=== PATIENT | male | born 1960 | race African-American/Black ===

== ENCOUNTER 2018-02-04 13:40 | Emergency (ER) | payer BC ==
--- NOTE | 2018-02-04 15:20 | EDM.PDOC ---
ED HPI GENERAL MEDICAL PROBLEM - General Chief Complaint: Back Pain or Injury Stated Complaint: UPPER BACK PAIN Time Seen by Provider: 02/04/18 13:53 Source of Information: Reports: Patient History Limitations: Reports: No Limitations - History of Present Illness INITIAL COMMENTS - FREE TEXT/NARRATIVE: HISTORY AND PHYSICAL: History of present illness: Patient is a 57-year-old male who presents to the emergency room today with complaints of right posterior shoulder and mid back discomfort. 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 Denies any injury, trauma or falls. The past several days he has had increased pain when reaching straight up turning or having to extend his arm out. He denies any numbness or tingling to his distal extremities. Denies any fever, chills, chest pain or shortness of breath. Denies any abdominal pain, nausea, vomiting or diarrhea/constipation. Review of systems: As per history of present illness and below otherwise all systems reviewed and negative. Past medical history: As per history of present illness and as reviewed below otherwise noncontributory. Surgical history: As per history of present illness and as reviewed below otherwise noncontributory. Social history: No reported history of drug or alcohol abuse. Family history: As per history of present illness and as reviewed below otherwise noncontributory. Physical exam: General: Well-developed and well-nourished 57-year-old -[place] male. Alert and oriented. Nontoxic appearing and in no acute distress. HEENT: Atraumatic, normocephalic, pupils equal and reactive bilaterally, negative for conjunctival pallor or scleral icterus, mucous membranes moist, throat clear, neck supple, nontender, trachea midline. No drooling or trismus noted. No meningeal signs Lungs: Clear to auscultation, breath sounds equal bilaterally, chest nontender. Heart: S1S2, regular rate and rhythm without overt murmur Abdomen: Soft, nondistended, nontender. Negative for masses or hepatosplenomegaly. Negative for costovertebral tenderness. Pelvis: Stable nontender. Genitourinary: Deferred. Rectal: Deferred. Skin: Intact, warm, dry. No lesions or rashes noted. Extremities: Atraumatic, range of motion to both upper extremities without difficulty or deficits. No pinpoint vertebral tenderness upon palpation of the cervical spine and back. Does have some muscular discomfort to the thoracic back /medial shoulder. negative for cords or calf pain. Neurovascular unremarkable. Neuro: Awake, alert, oriented. Cranial nerves II through XII unremarkable. Cerebellum unremarkable. Motor and sensory unremarkable throughout. Exam nonfocal. Notes: Chest x-ray shows no infiltrate, rib fracture, pneumonia. The presentation sounds musculature in nature. We'll give him Cataflam and Flexeril. Should education was given. Supportive measures were reviewed. He voices understanding and is agreeable to plan of care. Diagnostics: Chest x-ray Therapeutics: [] Impression: Muscular pain, upper right back Plan: 1. Please take the medications as directed. Do not take any additional NSAID such as ibuprofen or Aleve while taking Cataflam. Flexeril may cause drowsiness so do not take it while driving or needing to be functioning outside of the house until you know how this medication affects you. Tylenol for breakthrough discomfort. 2. Warm gentle heat to the painful area with stretching. 3. Follow-up with your primary care provider in the next 1-2 days. Return to the ED as needed and as discussed. Definitive disposition and diagnosis as appropriate pending reevaluation and review of above. Duration: Day(s): Location: Reports: Back Upper Back Pain Score (Numeric/FACES): 5 Past Medical History - Past Health History Medical/Surgical History: Denies Medical/Surgical History Social & Family History - Tobacco Use Smoking Status *Q: Never Smoker Second Hand Smoke Exposure: No - Recreational Drug Use Recreational Drug Use: No ED ROS GENERAL - Review of Systems Review Of Systems: ROS reveals no pertinent complaints other than HPI. ED EXAM, UPPER BACK/NECK PAIN - Physical Exam Exam: See Below (See dictation) Course - Vital Signs Last Recorded V/S: Last Vital Signs Temp 97.1 F 02/04/18 14:32 Pulse 72 02/04/18 14:32 Resp 18 02/04/18 14:32 BP 137/83 02/04/18 14:32 Pulse Ox 100 02/04/18 14:32 Departure - Departure Time of Disposition: 15:50 Disposition: Home, Self-Care 01 Clinical Impression: Muscular pain - Discharge Information Instructions: Muscle Strain, [id number] Referrals: PCP,None [Primary Care Provider] - Forms: ED Department Discharge Additional Instructions: The following information is given to patients seen in the emergency department who are being discharged to home. This information is to outline your options for follow-up care. We provide all patients seen in our emergency department with a follow-up referral. The need for follow-up, as well as the timing and circumstances, are variable depending upon the specifics of your emergency department visit. If you don't have a primary care physician on staff, we will provide you with a referral. We always advise you to contact your personal physician following an emergency department visit to inform them of the circumstance of the visit and for follow-up with them and/or the need for any referrals to a consulting specialist. The emergency department will also refer you to a specialist when appropriate. This referral assures that you have the opportunity for follow-up care with a specialist. All of these measure are taken in an effort to provide you with optimal care, which includes your follow-up. Under all circumstances we always encourage you to contact your private physician who remains a resource for coordinating your care. When calling for follow-up care, please make the office aware that this follow-up is from your recent emergency room visit. If for any reason you are refused follow-up, please contact the [facility] Emergency Department at and asked to speak to the emergency department charge nurse. [facility] [address] [place] [phone] 1. Please take the medications as directed. Do not take any additional NSAID such as ibuprofen or Aleve while taking Cataflam. Flexeril may cause drowsiness so do not take it while driving or needing to be functioning outside of the house until you know how this medication affects you. Tylenol for breakthrough discomfort. 2. Warm gentle heat to the painful area with stretching. 3. Follow-up with your primary care provider in the next 1-2 days. Return to the ED as needed and as discussed.
--- NOTE | 2018-02-04 15:49 | CR ---
EXAMINATION: Two-view chest (PA and Lateral views). HISTORY: Shortness of breath. FINDINGS: The trachea is midline. The Heart is borderline in size. The cardiomediastinal silhouette is within n ormal limits. No pulmonary infiltrates, effusions or pneumothorax. Osseous structures appear unremarkable. IMPRESSION: No acute cardiopulmonary process.
== END 2018-02-04 16:00 | disposition home or self-care (01) ==
LOC: MW.ED 13:40
DX: M54.6 Pain in thoracic spine (principal); M79.1 Myalgia
CPT/HCPCS: 71046; 71046-26; 99282; 99283

== ENCOUNTER 2024-03-15 09:02 | Emergency (ER) | payer BC ==
[2024-03-15] MEDS: Ibuprofen 600 MG Tab PO ONE (09:49)
== END 2024-03-15 10:58 | disposition home or self-care (01) ==
LOC: MW.ED 09:02
DX: M25.531 Pain in right wrist (principal); M79.89 Other specified soft tissue disorders; I10 Essential (primary) hypertension; Z79.899 Other long term (current) drug therapy
CPT/HCPCS: 73110; 99283; A9270